=== PATIENT | female | born 1970 | race African-American/Black ===

== ENCOUNTER 2017-09-20 00:14 | Observation (INO) | payer MEDICAID, OTHER ==
[~2017-09-20] VITALS: Ht 162.6 cm; Wt 95.7 kg
[2017-09-20] VITALS (10 sets, daily range): BP systolic 96–133; BP diastolic 54–82
[~2017-09-20 00:14] MED LIST: MECL25TA3 PO; PERM60CR12 TP
[2017-09-20] MEDS ORDERED: 0.9 % SODIUM CHLORIDE 10 ML DISP.SYRIN. IV PRN (00:30)
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
[2017-09-20 01:00] LABS: BASO # 0.1 x10^3/uL (0.0-0.2); BASO % 1 % (0-3); EOS # 0.1 x10^3/uL (0.0-0.7); EOS % 1 % (0-3); LYMPH # 3.4 x10^3/uL (1.0-4.8); LYMPH % 28 % (24-48); MEAN CORPUSCULAR HEMOGLOBIN 34 pg (25-35); MEAN CORPUSCULAR HGB CONC 36 g/dL (31-37); MEAN CORPUSCULAR VOLUME 94 fL (79-100); MONO # 0.6 x10^3/uL (0.0-1.1); MONO % 5 % (0-9); NEUT # 8.3 x10^3uL (1.8-7.7); NEUT % 67 % (31-73); PLATELET COUNT 265 x10^3/uL (140-400); RED BLOOD COUNT 4.47 x10^6/uL (3.50-5.40); RED CELL DISTRIBUTION WIDTH 13.8 % (11.5-14.5); WHITE BLOOD COUNT 12.4 x10^3/uL (4.0-11.0)
[2017-09-20] MEDS ORDERED: ONDANSETRON PF 4 MG/2 ML VIAL. IV PRN (01:00)
[2017-09-20] MEDS ORDERED: IV NORMAL SALINE 1,000ML 1,000 ML IV SCH (01:00)
[2017-09-20 01:10] LABS: ALBUMIN 3.7 g/dL (3.4-5.0); CALCIUM 9.1 mg/dL (8.5-10.1); CREATININE 0.9 mg/dL (0.6-1.0); DIRECT BILIRUBIN 0.1 mg/dL (0.0-0.2); GFR 80.9; MAGNESIUM 1.9 mg/dL (1.8-2.4); POTASSIUM 3.6 mmol/L (3.5-5.1); PREG TEST PT QUAL NEGATIVE (NEG); TOTAL BILIRUBIN 0.4 mg/dL (0.2-1.0)
[2017-09-20 01:11] LABS: ACETAMIN < 2.0 mcg/mL (10-30); ETHANOL < 10 mg/dL (0-10); SALIC 3.5 mg/dL (2.8-20.0)
[2017-09-20 01:23] LABS: BACTERIA,URINE 0 /HPF (0-FEW); BILIRUBIN,URINE NEG (NEG); CLARITY,URINE CLEAR; COLOR,URINE YELLOW; GLUCOSE,URINE NEG (NEG); NITRITE,URINE NEG (NEG); RBC,URINE 0 /HPF (0-2); SQUAMOUS EPITHELIAL CELL,UR OCC /LPF; UROBILINOGEN,URINE 0.2 mg/dL (0.2 mg/dL); WBC,URINE RARE /HPF (0-4)
[2017-09-20 01:25] LABS: AMPHETAMINE/METHAMPHETAMINE NEG (NEG); BARBITURATES NEG (NEG); BENZODIAZEPINES NEG (NEG); CANNABINOIDS NEG (NEG); COCAINE NEG (NEG); METHADONE NEG (NEG); OPIATES NEG (NEG); PHENCYCLIDINE NEG (NEG)
--- NOTE | 2017-09-20 02:29 | EKG ---
[address] [address] Test Date: 2017-09-20 Test Time: 01:11:11 Pat Name: SHAAN VELA Department: Room: [facility] 1 Gender: F Fiber Optic Splicer: AZIZA : 1970 Requested By: BYRON HANSEN Order Number: [id number] Reading MD: Chano Isidro Measurements Intervals [place] Rate: 110 P: 56 [place]: 136 QRS: 22 QRSD: 84 T: 36 QT: 344 QTc: 471 Interpretive Statements SINUS TACHYCARDIA NO SPECIFIC ECG ABNORMALITIES RI6.01 No previous ECG available for comparison Electronically Signed On 09-22-2017 10:03:26 WELDING FOREMAN by Chano Isidro
[2017-09-20] MEDS ORDERED: metronidazole (03:06)
[2017-09-20] MEDS ORDERED: prazosin (03:06)
[2017-09-20] MEDS ORDERED: gabapentin (03:06)
[2017-09-20] MEDS ORDERED: BELSOMRA (03:06)
[2017-09-20] MEDS ORDERED: clonazepam (03:06)
[2017-09-20] MEDS ORDERED: paroxetine (03:06)
[2017-09-20] MEDS ORDERED: quetiapine (03:06)
[2017-09-20] MEDS ORDERED: levaquin (03:06)
[2017-09-20] MEDS: IV NORMAL SALINE 1,000ML 1,000 ML IV SCH ×2 (05:54→12:26)
--- NOTE | 2017-09-20 07:25 | RAD ---
Portable chest, 09/20/2017: History: Overdose The heart size and pulmonary vascularity are normal. No pulmonary infiltrates are seen. There is no evidence of pleural fluid. IMPRESSION: No acute cardiopulmonary abnormality is detected.
[2017-09-20] MEDS ORDERED: ZOLP5TAB5 PO (09:59)
[2017-09-20] MEDS ORDERED: GABA600T2 PO (09:59)
[2017-09-20] MEDS ORDERED: PARO40TA3 PO (09:59)
[2017-09-20] MEDS ORDERED: PRAZ2CAP2 PO (09:59)
[2017-09-20] MEDS ORDERED: SUVO10TA PO (10:02)
[2017-09-20] MEDS ORDERED: QUET100T4 PO (10:02)
[2017-09-20] MEDS ORDERED: NICO1PAT21 TP (10:02)
[2017-09-20] MEDS ORDERED: CLON1TAB3 PO (10:02)
[2017-09-20] MEDS ORDERED: MELO15TA23 PO (13:09)
[2017-09-20] MEDS ORDERED: HYDR-2758 PO (13:09)
[2017-09-20] MEDS ORDERED: HYDROcodone/APAP 5/325MG 1 TAB TABLET PO ONE (13:15)
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
== END 2017-09-20 14:59 | disposition home or self-care (01) ==
LOC: ER 00:14 → INTOOBSV 00:59 → ICU 00:59
PROVIDERS: ADMIT Internal Medicine; ATTEND Internal Medicine
DX: T14.91XA Suicide attempt, initial encounter (principal); T50.902A Poisoning by unspecified drugs, medicaments and biological substances, intentional self-harm, initial encounter; I10 Essential (primary) hypertension; F31.9 Bipolar disorder, unspecified; M06.9 Rheumatoid arthritis, unspecified; G89.29 Other chronic pain; M54.5 Low back pain; Y92.89 Other specified places as the place of occurrence of the external cause; Y93.89 Activity, other specified; Y99.8 Other external cause status
CPT/HCPCS: 36415; 71045; 80048; 80076; 80307; 81001; 83735; 84703; 85025; 87641; 93005; 96360; 99285; G0378; G0480; G0379; G0479; J7030